=== PATIENT | female | born 1960 | race Caucasian/White ===

== ENCOUNTER 2018-07-11 09:14 | Day surgery (SDC) | payer BC ==
--- NOTE | 2018-07-06 14:38 | HP ---
PREOPERATIVE HISTORY AND PHYSICAL: DATE OF SURGERY/ADMISSION: 07/11/18 - [facility] DATE OF OFFICE VISIT/ENCOUNTER: 06/29/18 ATTENDING PHYSICIAN: Carolina Mann MD.* (DICTATED BY FLORENCIA THOMAS) PROCEDURE: Right wrist de Quervain release. CHIEF COMPLAINT: Right wrist pain. HISTORY OF PRESENT ILLNESS: This is a 57-year-old female who is complaining of radial-sided right wrist pain that has been ongoing for approximately 2 months. It is progressively worsening. She thinks it is from pushing herself up out of a chair because she has had trouble with her knee and needed to use her hands to help her stand up. She in the past has had a de Quervain release on the left and did quite well with that. She is now interested in proceeding with surgical intervention for the right wrist. PAST MEDICAL HISTORY: 1. Hypertension. 2. Hypercholesterolemia. 3. Hypothyroidism. 4. Bladder incontinence. PAST SURGICAL HISTORY: 1. Left wrist de Quervain release. 2. Right total knee arthroplasty. 3. Right carpal tunnel release. 4. Uterine ablation. MEDICATIONS: 1. Aspirin 81 mg daily. 2. Atenolol 50 mg daily. 3. Crestor 10 mg daily. 4. Detrol LA 4 mg daily. 5. Levoxyl 75 mcg daily. 6. Naproxen 500 mg 1 tab p.r.n. ALLERGIES: No known drug allergies. FAMILY MEDICAL HISTORY: Heart disease, diabetes and cancer. 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 She quit smoking 6-1/2 years ago, prior to that she smoked for 35 years approximately 2-1/2 packs per day. She denies recreational drug use and does not drink alcohol. REVIEW OF SYSTEMS: General: Negative for fevers, chills, night sweats, unexplained weight loss/gain. No known anesthesia problems. HEENT: Negative for headache, lightheadedness, syncopal episodes, visual changes. Integumentary : Negative for abrasions, lesions, open wounds. Cardiothoracic: Negative for hypertension, chest pain, palpitations, edema. Respiratory: Negative for shortness of breath with exertion, chronic cough, wheezing. GI: Negative for nausea, vomiting, diarrhea, constipation or GERD. : Negative for nocturia, urinary frequency, urgency, history of UTIs, kidney problems. Musculoskeletal: Positive for current complaint. Negative for chronic or intermittent back pain or history of fractures. Neurological: Negative for paresthesias, numbness, history of seizure, stroke, poor balance. Endocrine: Positive for hypothyroidism, negative for diabetes. Hematologic: Negative for easy bruising , anemia, bleeding disorders, history of DVT. Infectious Disease: Negative for history of MRSA, hepatitis C, HIV. PHYSICAL EXAMINATION GENERAL: Well-developed, well-nourished 57-year-old female, in no acute distress. VITAL SIGNS: Height 5 feet 6 inches, weight 170 pounds, blood pressure 118/68, pulse rate 68. HEENT: Normocephalic, atraumatic. Pupils are equal, round, and reactive to light and accommodation. Extraocular movements are intact. Throat is clear. NECK: Supple. No palpable lymph nodes. PULMONARY: Lungs are clear to auscultation bilaterally. No wheezes, rales, or rhonchi. CARDIOVASCULAR: Regular rate and rhythm. S1, S2. No murmurs, rubs, or gallops. No edema. ABDOMEN: Positive bowel sounds, soft, nontender. NEUROLOGICAL: Alert and oriented x3. Cranial nerves II through XII are intact. Sensation is intact to light touch. MUSCULOSKELETAL: On exam of the right wrist, there is no visible swelling. She has tenderness at the first dorsal compartment. Positive Enio's test. Neurovascular function is intact. Skin is intact. IMPRESSION: Right de Quervain tenosynovitis. PLAN/RECOMMENDATIONS: The patient is scheduled to undergo a right wrist de Quervain release with Dr. Mann on 07/11/18. She will return to the office 10 days postop for followup and suture removal. A prescription for Ultracet was e- scribed to the patient's pharmacy for postoperative pain management. FLORENCIA THOMAS [id number]/SHAYLA #: [id number] MTDEdison
[~2018-07-11 09:14] MED LIST: Buffered Lidocaine 0.9% SYRIN* 5 ML/SYR SYRINGE INTRADERM ONE; Famotidine IV* 10 MG/ML 2 ML (20 mg) IV ONE
[2018-07-11] MEDS ORDERED: Famotidine IV* 10 MG/ML 2 ML (20 mg) ONE (09:56)
[2018-07-11] MEDS ORDERED: Naloxone* 0.4 MG/ML 1 ML VIAL IV PRN (10:08)
[2018-07-11] MEDS ORDERED: DiMENhydriNATE IV* 50 MG/ML VIAL IV PUSH PRN (10:08)
[2018-07-11] MEDS ORDERED: Acetaminophen TAB* 325 MG PO PRN (10:08)
[2018-07-11] MEDS ORDERED: oxyCODONE TAB* 5 MG TAB PO PRN (10:08)
[2018-07-11] MEDS ORDERED: Midazolam* 1 MG/ML 5 ML VIAL (5 MG) ONE (10:31)
[2018-07-11] MEDS ORDERED: fentaNYL* 50 MCG/ML 2 ML VIAL (100 MCG VIAL) ONE (10:31)
[2018-07-11] MEDS ORDERED: Lidocaine 1% INJ* 10 MG/ML 30 ML SDV ONE (10:44)
[2018-07-11] MEDS ORDERED: Propofol* 10 MG/ML 20 ML BTL IV PUSH ONE (11:10)
[2018-07-11] MEDS ORDERED: Ketorolac INJ* 30 MG/ML 1 ML VIAL ONE (11:10)
[2018-07-11] MEDS ORDERED: Lidocaine 2% PF * 5 ML VIAL ONE (11:10)
[2018-07-11] MEDS ORDERED: Ondansetron INJ* 2 MG/ML VIAL ONE (11:10)
[2018-07-11 11:27] VITALS: BP 127/78
--- NOTE | 2018-07-11 17:08 | OP ---
DATE OF OPERATION: 07/11/18 [facility] DATE OF : 62 SURGEON: Carolina Mann MD HOOF TRIMMER: FLORENCIA Winters ANESTHESIA: Local MAC. PRE-OP DIAGNOSIS: De Quervain's tenosynovitis of the right. POST-OP DIAGNOSIS: De Quervain's tenosynovitis of the right. OPERATIVE PROCEDURE: Right De Quervain's release. ESTIMATED BLOOD LOSS: Zero. TOURNIQUET TIME: Approximately 10 minutes. INDICATIONS: Anabel is a 57-year-old woman with right radial wrist pain. She has had De Quervain's release on the left in the past with good results, presents now for the same on the right. DESCRIPTION OF PROCEDURE: The patient was brought to the operating room, was given a sedation anesthetic and a local infiltration of 10 cc 1% plain lidocaine on the radial aspect of right wrist. Skin of her right hand and forearm was prepped and draped in usual sterile fashion. The hand and forearm were exsanguinated and the tourniquet elevated to 250 mmHg. A longitudinal incision was made centered at the tip of the radial styloid and we dissected bluntly through the subcutaneous tissue. Branches of the radial sensory nerve were located and then were retracted by the nursing surgical services director, Lita Rodriguez. The first dorsal compartment was incised longitudinally completely releasing the APL and EPB tendons, which were in good condition. There was a small amount of tenosynovitis and this was debrided. The wound was irrigated and skin edges reapproximated with 4-0 nylon suture. The wound was dressed with Xeroform, 4x4, Webril and an Leonel wrap. The patient tolerated the procedure well and was brought to the recovery room in good condition. [id number]/CPS #: [id number] MTDD
== END 2018-07-11 11:45 | disposition home or self-care (01) ==
LOC: OREAST 09:14
PROVIDERS: ATTEND Orthopaedic Surgery
DX: M65.4 Radial styloid tenosynovitis [de Quervain] (principal); I10 Essential (primary) hypertension; E78.00 Pure hypercholesterolemia, unspecified; E03.9 Hypothyroidism, unspecified; Z87.891 Personal history of nicotine dependence
CPT/HCPCS: J1885; J2250; J2405; J2704; J3010